=== PATIENT | male | born 1985 | race Caucasian/White ===

== ENCOUNTER 2017-03-14 08:29 | Emergency (ER) | payer SELFPAY ==
[2017-03-14 09:09] VITALS: BP 152/93
--- NOTE | 2017-03-14 09:45 | UC ---
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 started in his shoulder worsened and travels into his arm bicep tenderness and extremely painful to move his arm this morning feels some numbness and tingling in his left hand today can move his arm but limited d/t movement not taking any medication for pain at this time denies chest pain, shorntess of breath , dizziness, diaphoresis,N/V/D - History of Current Complaint Chief Complaint: UCUpperExtremity Stated Complaint: LT ARM INJURY,PAIN/NUMB Time Seen by Provider: 03/14/17 09:38 Hx Obtained From: Patient - Allergies/Home Medications Allergies/Adverse Reactions: Allergies Allergy/AdvReac Type Severity Reaction Status Date / Time No Known Allergies Allergy Verified 05/21/16 12:30 PMH/Surg Hx/FS Hx/Imm Hx Previously Healthy: Yes Endocrine History Of: Denies: Diabetes, Thyroid Disease Cardiovascular History Of: Denies: Cardiac Disorders, Hypertension Respiratory History Of: Denies: COPD, Asthma GI/ History Of: Denies: Ulcer - Surgical History Surgical History: Yes Surgery Procedure, Year, and Place: Pin in right hand - Family History Known Family History: Negative: Cardiac Disease, Hypertension, Diabetes, Seizure Disorder, Blood Disorder - Social History Occupation: Employed Full-time Lives: With Family Alcohol Use: Daily Alcohol Amount: a few beers Substance Use Type: None Smoking Status (MU): Light Every Day Tobacco Smoker Type: Cigarettes Amount Used/How Often: 1 Pack every 2 days Length of Time of Smoking/Using Tobacco: 10 years Have You Smoked in the Last Year: Yes Household Exposure Type: Cigarettes Cessation Counseling: Patient Advised to Stop - Immunization History Most Recent Influenza Vaccination: not received Most Recent Tetanus Shot: may 12, 2016 Most Recent Pneumonia Vaccination: not received Review of Systems Constitutional: Negative Skin: Negative Eyes: Negative ENT: Negative Respiratory: Negative Cardiovascular: Negative Gastrointestinal: Negative Genitourinary: Negative Motor: Negative Neurovascular: Negative Musculoskeletal: Other: - arm and shoulder pain Neurological: Negative Psychological: Negative All Other Systems Reviewed And Are Negative: Yes Physical Exam Triage Information Reviewed: Yes Appearance: Well-Appearing, No Pain Distress, Well-Nourished Vital Signs: Initial Vital Signs Temp 98 F 03/14/17 09:02 Pulse 78 03/14/17 09:02 Resp 16 03/14/17 09:02 BP 152/93 03/14/17 09:02 Pulse Ox 99 03/14/17 09:02 Vital Signs Reviewed: Yes Eyes: Positive: Conjunctiva Clear ENT: Positive: Pharynx normal, TMs normal Neck: Positive: No Lymphadenopathy Respiratory: Positive: Lungs clear, Normal breath sounds, No respiratory distress, No accessory muscle use Cardiovascular: Positive: RRR, No Murmur, Pulses Normal Abdomen Description: Positive: Nontender, No Organomegaly, Soft Bowel Sounds: Positive: Present Musculoskeletal: Positive: Other: - RUE- No bony deformities, tenderness in rotator cuff, biceps tendon, and acromioclavicular joint. Full ROM and strength in shoulder upon adduction, abduction, internal and external rotation. Scapular winging, impingement sign, scratch test (internal rotation), joint laxity, drop arm test were negative. equal strength ion hands pain increases with any movement Neurological: Positive: Alert Psychological Exam: Normal Skin Exam: Normal Upper Extremity Course/Dx - Course Course Of Treatment: exam completed. pain in left shoulder and arm reproducible. no associated symptoms to indicate cardiac involevement. will treat with NSAIDS< flexeril and PT. out of work for 2 days. discusses s/s of when to seek medical assisatnce and he states understanding - Differential Dx/Diagnosis Provider Diagnoses: left shoulder pain. left bicep pain. elevated blood pressure Discharge - Discharge Plan Condition: Stable Disposition: HOME Prescriptions: Cyclobenzaprine TAB* [Flexeril 10 MG TAB*] 10 mg PO BEDTIME #10 tab Naproxen [Naproxen EC 500 MG TAB] 500 mg PO BID #20 tab Patient Education Materials: Tendinitis (ED), Rotator Cuff Tendinitis (ED), Shoulder Sprain (ED) Forms: *Work Release Referrals: No Primary Care Phys,NOPCP [Primary Care Provider] - [facility] [place] [facility] [Outside] Additional Instructions: Start flexeril as directed. Do not drink alcohol or drive while taking flexeril. Please call physical therapy for further evaluation and treatment. Take naproxen for pain. Increase fluids and rest. Please review your discharge instructions. If your symptoms do not improve please call your primary care provider or return to urgent care. Your blood pressure is elevated. Please contact your primary care provider within 1 day -4 weeks for further evaluation.
== END 2017-03-14 10:15 | disposition home or self-care (01) ==
LOC: UCEAST 08:29
DX: M25.512 Pain in left shoulder (principal); M79.622 Pain in left upper arm; F17.210 Nicotine dependence, cigarettes, uncomplicated
CPT/HCPCS: 99212; G0463

== ENCOUNTER 2018-10-04 13:36 | Emergency (ER) | payer SELFPAY ==
[2018-10-04 14:57] VITALS: BP 134/90
--- NOTE | 2018-10-04 15:11 | UC ---
Hand/Wrist HPI - HPI Summary HPI Summary: 33 y/o male presents to the urgent care c/o left thumb swelling and pain for the past month. Pt states pain is dull at the base of her thumb 8/10 w/ certain movement and 2/10 at rest w/o any radiation. He has noticed decrease ROM w/ time. Pt denies any previous injury, numbness or tingling sensation over the thumb or hand , fever, SOB, chest pain, abdominal pain, N/V/D. Pt Took Ibuprofen PO 400mg PO yesterday to alleviate symptoms. - History Of Current Complaint Chief Complaint: UCUpperExtremity Stated Complaint: THUMB INJURY Time Seen by Provider: 10/04/18 15:10 Hx Obtained From: Patient Onset/Duration: Gradual Onset, Lasting Weeks - 4 weeks, Still Present, Worse Since - 2 days w/ swelling Severity Initially: Mild Severity Currently: Moderate Pain Intensity: 5 Pain Scale Used: 0-10 Numeric Character Of Pain: Dull Aggravating Factor(s): Movement, Lifting, Pulling Alleviating Factor(s): Rest, OTC Meds Associated Signs And Symptoms: Positive: Swelling - at the base of left thumb. Negative: Bruising, Fever, Weakness, Numbness/Tingling Related History: Dominant Hand Right - Allergies/Home Medications Allergies/Adverse Reactions: Allergies Allergy/AdvReac Type Severity Reaction Status Date / Time No Known Allergies Allergy Verified 10/04/18 14:51 PMH/Surg Hx/FS Hx/Imm Hx Previously Healthy: Yes - Pt denies PMHX - Surgical History Surgical History: Yes Surgery Procedure, Year, and Place: Pin in right hand - Family History Known Family History: Positive: None - Pt denies FMHX Negative: Cardiac Disease, Hypertension, Diabetes, Seizure Disorder, Blood Disorder - Social History Occupation: Employed Full-time Lives: With Family Alcohol Use: Daily Alcohol Amount: a few beers Substance Use Type: Marijuana Smoking Status (MU): Light Every Day Tobacco Smoker Type: Cigarettes Amount Used/How Often: 6-7 cigs / day Length of Time of Smoking/Using Tobacco: 10 years Have You Smoked in the Last Year: Yes Household Exposure Type: Cigarettes - Immunization History Most Recent Influenza Vaccination: not received Most Recent Tetanus Shot: may 12, 2016 Most Recent Pneumonia Vaccination: not received Review of Systems All Other Systems Reviewed And Are Negative: Yes Constitutional: Positive: Negative Skin: Positive: Other - mild swelling at the base of the left thumb Eyes: Positive: Negative ENT: Positive: Negative Respiratory: Positive: Negative Cardiovascular: Positive: Negative Gastrointestinal: Positive: Negative Genitourinary: Positive: Negative Motor: Positive: Negative Neurovascular: Positive: Negative Musculoskeletal: Positive: Decreased ROM - left thumb, Other: - left thumb pain Neurological: Positive: Negative Psychological: Positive: Negative Is Patient Immunocompromised?: No Physical Exam - Summary Physical Exam Summary: Vital Signs Reviewed: Yes General: Well-Appearing, No Pain Distress, Well-Nourished male w/o any apparent distress Eyes: Positive: Conjunctiva Clear - PERRLA, EOMI ENT: Positive: Normal ENT inspection, Hearing grossly normal, Pharynx normal, TMs normal, Uvula midline Neck: Positive: Supple, Nontender, No Lymphadenopathy Respiratory: Positive: Chest non-tender, Lungs clear, Normal breath sounds, No respiratory distress Cardiovascular: Positive: RRR, No Murmur, Pulses Normal, Brisk Capillary Refill Abdomen Description: Positive: Nontender, No Organomegaly, Soft. Negative: CVA Tenderness (R), CVA Tenderness (L) Bowel Sounds: Positive: Present Musculoskeletal: Positive: Strength Intact, Other: Neurological Exam: Normal Musculoskeletal: Positive: LF hand is without obvious asymmetry or deformity when compared to the R hand. L #1st phalanx with no ecchymosis and positive soft tissue swelling at the base firs MCPJ w/o any obvious deformity. No bony crepitus. Point tenderness over same area. Decreased ROM due to pain. Motor/ sensory function of ulnar, radial, median nerves intact. Ulnar and radial pulses intact. Capillary refill intact. Psychological Exam: Normal Skin Exam: Normal Triage Information Reviewed: Yes Vital Signs: Initial Vital Signs Temp 98.9 F 10/04/18 14:50 Pulse 73 10/04/18 14:50 Resp 18 10/04/18 14:50 BP 134/90 10/04/18 14:50 Pulse Ox 100 10/04/18 14:50 Hand/Wrist Course/Dx - Course Course Of Treatment: 33 y/o male presents to the urgent care c/o left thumb swelling and pain for the past month. Pt states pain is dull at the base of her thumb 8/10 w/ certain movement and 2/10 at rest w/o any radiation. She has noticed decrease ROM w/ time. Pt denies any previous injury, numbness or tingling sensation over the thumb or hand , fever, SOB, chest pain, abdominal pain, N/V/D. Pt Took Ibuprofen PO 400mg PO yesterday to alleviate symptoms. Hx obtained. PE performed. X-ray of the LF thumb ordered: Impression: No sapecific soft tissue swelling, no radiographic evidence of fracture as per radiology. Pt s LF thumb phalanx immobilized with a thumb spica splint by the nurse. Advised RICE: Rest, Ice, elevation, Rx Ibuprofen PO for pain. There was no neurovascular compromise after splint. Pt strongly advised to f/u with Orthopedic Dr Martinez if not improvement of symptoms in 2-3 days. Pt understood and agreed w/ plan of care. - Differential Dx/Diagnosis Differential Diagnosis/HQI/PQRI: Contusion, Fracture, Sprain, Strain, Tendonitis , Tenosynovitis, Other - arthritis Provider Diagnosis: Skier's thumb, Pain of left thumb, Elevated BP without diagnosis of hypertension Discharge - Sign-Out/Discharge Documenting (check all that apply): Patient Departure - d/c home All imaging exams completed and their final reports reviewed: Yes - Discharge Plan Condition: Stable Disposition: HOME Prescriptions: Ibuprofen TAB* [Motrin TAB* 800 MG] 800 mg PO Q6H PRN #30 tab PRN Reason: Pain Patient Education Materials: Skier's Thumb (ED), Low-Sodium Diet (ED) Forms: *Work Release Referrals: [facility] [place] [facility] [Outside] - 3 Days Lalo Martinez MD [Medical Doctor] - 3 Days Additional Instructions: 1-Please take medications as directed after meals to alleviate pain and swelling. 2-Please apply ice, keep your thumb immobilized with the splint. 3- Please f/u with Orthopedic Dr Martinez in 3 days for further evaluation and treatment. 4- Your BP is elevated today. please decrease salt in your diet, monitor BP and if it continues to be elevated please f/u with your PCP for further management - Billing Disposition and Condition Condition: STABLE Disposition: Home
== END 2018-10-04 16:12 | disposition home or self-care (01) ==
LOC: UCEAST 13:36
DX: S63.642A Sprain of metacarpophalangeal joint of left thumb, initial encounter (principal); X58.XXXA Exposure to other specified factors, initial encounter; Y92.9 Unspecified place or not applicable; R03.0 Elevated blood-pressure reading, without diagnosis of hypertension; F17.210 Nicotine dependence, cigarettes, uncomplicated
CPT/HCPCS: 99213; G0463

== ENCOUNTER 2018-10-13 10:22 | Day surgery (SDC) | payer OTHER ==
--- NOTE | 2018-10-12 16:44 | HP ---
PREOPERATIVE HISTORY AND PHYSICAL: DATE OF SURGERY/ADMISSION: 10/13/18 DATE OF OFFICE VISIT/ENCOUNTER: 10/12/18 ATTENDING SURGEON: Janine Pradhan MD * (DICTATED BY JEB BLUM) PROCEDURE: Incision and drainage, removal of foreign body left thumb. CHIEF COMPLAINT: Pain and swelling, left thumb. 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 Over the past month, he has had increased pain and swelling in his left thumb that is not resolving. He thinks may be he got a buckthorn stuck in his thumb about the time of onset of symptoms. He has taken a course of Keflex and also antiinflammatories over the past week; however, these have not improved his symptoms. He believes that the pain and swelling are getting worse. He denies any associated numbness or tingling. He denies having any fevers. It has been recommended by Dr. Pradhan that he undergo an incision and drainage of the left thumb and the patient has consented to proceed. PAST MEDICAL HISTORY: Unremarkable. PAST SURGICAL HISTORY: Right hand surgery after a metacarpal fracture. MEDICATIONS: Ibuprofen p.r.n. ALLERGIES: No known drug allergies. FAMILY MEDICAL HISTORY: Stroke. SOCIAL HISTORY: The patient is employed as an data virtualization consultant. He is a current smoker half a pack per day for the past 10 years. He also smokes marijuana with some irregularity. He drinks alcohol on occasion. REVIEW OF SYSTEMS: Negative for general, cephalic, cardiovascular, respiratory , GI, , other musculoskeletal, integumentary, endocrine, neurologic, and hematologic symptoms. Infectious Disease is negative for history of MRSA, hepatitis C, HIV. PHYSICAL EXAMINATION GENERAL: Well-developed, well-nourished 33-year-old male, in no acute distress. VITAL SIGNS: Height 6 feet 3 inches, weight 185 pounds. Pulse rate 82, blood pressure 140/90. HEENT: Normocephalic, atraumatic. Pupils are equal, round, and reactive to light and accommodation. Throat is clear. NECK: Supple. No palpable lymph nodes. PULMONARY: Lungs are clear to auscultation bilaterally. No wheezes, rales, or rhonchi. CARDIOVASCULAR: Regular rate and rhythm. S1, S2. No murmurs, rubs, or gallops. No edema. ABDOMEN: Positive bowel sounds. Soft, nontender. MUSCULOSKELETAL: On exam of his left thumb, he has significant swelling from the MP joint distally. There is no erythema. He has exquisite tenderness over the flexor tendon sheath between MP and IP and increased pain with flexion, also increased pain with passive extension. There is a small black dot area on the volar aspect of his thumb that could represent an entrance wound of the buckthorn. There is no drainage. NEUROLOGICAL: Alert and oriented x3. Cranial nerves II through XII are intact. Sensation is intact to light touch. SKIN: Intact. ASSESSMENT: Left thumb possible foreign body/infection. PLAN: The patient is scheduled to undergo an incision and drainage, removal of foreign body left thumb with Dr. Pradhan on 10/13/18. He will return to the office 10 days postop for followup and suture removal. He will use over-the- counter ibuprofen and/or Tylenol for postoperative pain management. JEB BLUM [id number]/[facility] #: [id number] [place]
[~2018-10-13 10:22] MED LIST: Buffered Lidocaine 0.9% SYRIN* 5 ML/SYR SYRINGE INTRADERM ONE; Famotidine IV* 10 MG/ML 2 ML (20 mg) IV ONE; Famotidine IV* 10 MG/ML 2 ML (20 mg) ONE; Lactated Ringers 1000 ML Bag* 1,000 ML IV SCH; Lidocaine 1% INJ* 10 MG/ML 30 ML SDV ONE; ceFAZolin 2 GM PREMIX in ORs 2 GM/50 ML BAG IVPB ONE
[2018-10-13] MEDS ORDERED: Midazolam* 1 MG/ML 5 ML VIAL (5 MG) ONE (11:14)
[2018-10-13] MEDS ORDERED: fentaNYL* 50 MCG/ML 2 ML VIAL (100 MCG VIAL) ONE (11:14)
[2018-10-13] MEDS ORDERED: Acetaminophen TAB* 325 MG PO PRN (11:44)
[2018-10-13] MEDS ORDERED: Naloxone* 0.4 MG/ML 1 ML VIAL IV PRN (11:44)
[2018-10-13] MEDS ORDERED: DiMENhydriNATE IV* 50 MG/ML VIAL IV PUSH PRN (11:44)
[2018-10-13] MEDS ORDERED: oxyCODONE TAB* 5 MG TAB PO PRN (11:44)
[2018-10-13] MEDS ORDERED: Midazolam* 1 MG/ML 2 ML VIAL (2 MG) ONE (12:11)
[2018-10-13] MEDS ORDERED: Lidocaine 2% PF * 5 ML VIAL ONE (12:15)
[2018-10-13] MEDS ORDERED: Propofol* 10 MG/ML 20 ML BTL ONE ×2 (12:15)
[2018-10-13] MEDS ORDERED: Ondansetron INJ* 2 MG/ML VIAL ONE (12:15)
[2018-10-13] MEDS ORDERED: Ketorolac INJ* 30 MG/ML 1 ML VIAL ONE (12:15)
[2018-10-13 12:34] VITALS: BP 117/88
--- NOTE | 2018-10-13 20:45 | OP ---
DATE OF OPERATION: 10/13/18 [facility] DATE OF : 85 SURGEON: Janine Pradhan MD MANAGER CANCER: JEB Brandon ANESTHESIA: Local MAC. PRE-OP DIAGNOSIS: Left thumb infection and possible foreign body. POST-OP DIAGNOSIS: Left thumb infection, possible tenosynovitis. No foreign body was found. OPERATIVE PROCEDURE: I and D of left thumb with exploration. ESTIMATED BLOOD LOSS: Zero. TOURNIQUET TIME: About 15 minutes. 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 He has had a swelling in his left thumb for a few weeks. He does not recall a specific puncture wound, but thinks he might have had a puncture wound in the thumb. He complains of pain at the IP flexion crease. This did not improve with a course of oral antibiotic. He presents for I and D and exploration and possible foreign body removal. DESCRIPTION OF PROCEDURE: The patient was brought to the operating room and was given sedation anesthetic and a local infiltration of 10 cc of 1% plain lidocaine as a digital block to the left thumb. The skin of his left upper extremity was prepped and draped in the usual sterile fashion. The hand and forearm were exsanguinated and the tourniquet elevated to 250 mmHg. A diagonal incision was made across the IP flexion crease of the thumb and the wound was explored. No foreign body was found. Cultures were obtained including fungal cultures. The flexor tendon was in good condition. The wound was copiously irrigated with a liter and a half of saline and then loosely closed with 4-0 nylon suture. The wound was dressed with Xeroform, 4x4, Webril and Coban. The patient tolerated the procedure well and was brought to the recovery room in good condition. [id number]/[facility] #: [id number] [facility]
== END 2018-10-13 12:56 | disposition home or self-care (01) ==
LOC: OREAST 10:22
PROVIDERS: ATTEND Orthopaedic Surgery
DX: S61.032A Puncture wound without foreign body of left thumb without damage to nail, initial encounter (principal); L03.012 Cellulitis of left finger; M65.842 Other synovitis and tenosynovitis, left hand; F17.210 Nicotine dependence, cigarettes, uncomplicated; W60.XXXA Contact with nonvenomous plant thorns and spines and sharp leaves, initial encounter; X58.XXXA Exposure to other specified factors, initial encounter; Y92.9 Unspecified place or not applicable; Y99.0 Civilian activity done for income or pay
CPT/HCPCS: 87070; 87073; 87077; 87102; 87116; 87205; 87206; J0690; J1885; J2250; J2405; J2704; J3010

== ENCOUNTER 2018-12-11 13:10 | Day surgery (SDC) | payer OTHER ==
[~2018-12-11 13:10] MED LIST changes: -Buffered Lidocaine 0.9% SYRIN* 5 ML/SYR SYRINGE INTRADERM ONE; +Buffered Lidocaine 1% SYRIN* 1 ML/SYRINGE INTRADERM ONE; -Famotidine IV* 10 MG/ML 2 ML (20 mg) ONE; -Lidocaine 1% INJ* 10 MG/ML 30 ML SDV ONE; -ceFAZolin 2 GM PREMIX in ORs 2 GM/50 ML BAG IVPB ONE
[2018-12-11] MEDS ORDERED: ceFAZolin 2 GM PREMIX in ORs 2 GM/50 ML BAG IVPB ONE (13:35)
[2018-12-11] MEDS ORDERED: Famotidine IV* 10 MG/ML 2 ML (20 mg) ONE (13:36)
[2018-12-11] MEDS ORDERED: Midazolam* 1 MG/ML 5 ML VIAL (5 MG) ONE (14:38)
[2018-12-11] MEDS ORDERED: Lidocaine 2% PF * 5 ML VIAL ONE (14:38)
[2018-12-11] MEDS ORDERED: fentaNYL* 50 MCG/ML 2 ML VIAL (100 MCG VIAL) ONE (14:38)
[2018-12-11] MEDS ORDERED: Ondansetron INJ* 2 MG/ML VIAL ONE (14:38)
[2018-12-11] MEDS ORDERED: Ketorolac INJ* 30 MG/ML 1 ML VIAL ONE (14:38)
[2018-12-11] MEDS ORDERED: Propofol* 10 MG/ML 20 ML BTL ONE (14:38)
[2018-12-11] MEDS ORDERED: Bupivacaine 0.5%* 50 ML VIAL ONE (15:24)
[2018-12-11] MEDS ORDERED: oxyCODONE TAB* 5 MG TAB PO PRN (15:25)
[2018-12-11] MEDS ORDERED: Acetaminophen TAB* 325 MG PO PRN (15:25)
[2018-12-11] MEDS ORDERED: DiMENhydriNATE IV* 50 MG/ML VIAL IV PUSH PRN (15:25)
[2018-12-11 17:12] VITALS: BP 138/92
--- NOTE | 2018-12-11 23:55 | OP ---
DATE OF OPERATION: 12/11/18 - [facility] DATE OF : 85 SURGEON: Lalo Martinez MD ORDER RUNNER: JEB Brandon. An sales office assistant was needed for the entirety of the case to aid in positioning of the hand as this was on the thumb. ANESTHESIOLOGIST: Dr. Don. ANESTHESIA: General. PRE-OP DIAGNOSES: 1. Left thumb periarticular interphalangeal joint soft tissue mass with a large amount of associated soft tissue swelling and edema. 2. Left thumb interphalangeal joint effusion. POST-OP DIAGNOSES: 1. Left thumb periarticular interphalangeal joint soft tissue mass with a large amount of associated soft tissue swelling and edema. 2. Left thumb interphalangeal joint effusion. OPERATIVE PROCEDURE: 1. Left thumb excision of deep periarticular interphalangeal joint soft tissue mass. 2. Arthrotomy with cultures with irrigation and debridement of left thumb interphalangeal joint. INDICATIONS: Nolan had an attempted excise of what he told me was a superficial thorn. Nothing was really found; the thumb has been swollen for quite some time; it is centered around the IP joint. He is very tender over the palmar radial aspect of that joint where he had what looked like circumscribed soft tissue mass, largely fluid filled with potentially some solid component as well near the joint. I had talked to him about his options. We had talked about excising the mass and irrigating out the joint. He understands the risk of neurovascular injury to the thumb, of loss of sensation on the thumb tip, of stiffness and he would like to proceed. ESTIMATED BLOOD LOSS: 2 mL. COMPLICATIONS: None. FINDINGS: There was a brownish looking soft tissue mass in the area of concern on the MRI. DESCRIPTION OF PROCEDURE: Nolan was seen in the preoperative holding area. The correct side, site, and procedure were identified. We came back to the operating room where the arm was prepped and draped in the usual fashion and a time-out was performed. The arm was exsanguinated with the Esmarch and the tourniquet was inflated to 250 mmHg. I went ahead and used his prior oblique incision and anted this back transversely across the IP joint and then brought this out distally onto the thumb tip. I very carefully took the dissection down to the tendon sheath as there was some quite a bit of scar tissue that had formed and I wanted to preserve the digital nerve. The radial digital nerve was identified as was the digital artery and these were protected throughout the case. The volar plate was identified and I came just under their proximal radial aspect right where I had seen the soft tissue mass on the MRI. I incised this longitudinally with a [place] blade and immediately a brownish soft tissue mass protruded from the area. I excised this. As I was excising it, I opened the joint. There was abundant synovial fluid that came out. I went ahead and sent this for aerobic, anaerobic, fungal, and microbacterial cultures. We attempted to get some fluid for crystal analysis, but that required separate fluid and not just a swab and there just was not enough to send for the specimen. I did take out a 22 gauge angiocatheter and irrigate out the joint with 50 mL of saline. What synovium I could see was debrided with a rongeur. Care was taken not to injure the articular surface. Once I had everything looking as good as possible, I went ahead and closed the longitudinal split in the proximal volar plate with a 4-0 PDS suture. The skin was then closed with 4-0 nylon suture. Soft dressings were applied. I had performed a digital block with 0.5% Marcaine at the beginning of the case. Tourniquet was deflated. The thumb pinked up immediately. He was taken to the recovery room in stable condition. [id number]/[facility] #: [id number] [facility]
== END 2018-12-11 17:31 | disposition home or self-care (01) ==
LOC: OR 13:10
PROVIDERS: ATTEND Orthopaedic Surgery Hand Surgery
DX: M67.442 Ganglion, left hand (principal); M25.442 Effusion, left hand; Z72.0 Tobacco use
CPT/HCPCS: 76000; 87070; 87073; 87102; 87116; 87205; 87206; 88304; J0690; J1885; J2250; J2405; J2704; J3010

== ENCOUNTER 2019-06-23 09:44 | Emergency (ER) | payer SELFPAY ==
[2019-06-23 09:50] VITALS: BP 131/86
--- NOTE | 2019-06-23 09:56 | UC ---
Skin Complaint HPI - HPI Summary HPI Summary: 33 y/o male presents to the urgent care c/o a piece of ivey branch in his posterior scalp s/p throwing the branch yesterday at his house. Pt reports his tried to removed the piece of wood w/ forceps w/o any success. Pain at touch is 4/10 at touch, non bleeding. Pt is UTD w/ Tdap given on 2017. Pt has not taken anything for pain. Pt denies fever, TEIXEIRA, visual changes, dizziness, SOB, chest pain,abdominal pain, N/V/D. - History of Current Complaint Chief Complaint: UCForeignBody Time Seen by Provider: 06/23/19 09:55 Stated Complaint: SCALP COMPLAINT Hx Obtained From: Patient Onset/Duration: Sudden Onset, Lasting Days - 1 day, Still Present, Worse Since - this morning Skin Exposure Onset/Duration: Days Ago - 1 day, Worse Since: - this morning Timing: Constant Onset Severity: Mild Current Severity: Mild Pain Intensity: 4 Pain Scale Used: 0-10 Numeric Location: Discrete - posterior scalp w/ piece of wood Character: Swelling, Pain, Redness Aggravating Factor(s): Touch Alleviating Factor(s): Heat Associated Signs & Symptoms: Positive: Rash - piece of wood in the posterior scalp, Tenderness. Negative: Nausea, Vomiting, Numbness, Fever, Chills, Drainage Related History: Other: - piece of wood in the posterior scalp - Allergy/Home Medications Allergies/Adverse Reactions: Allergies Allergy/AdvReac Type Severity Reaction Status Date / Time kiwi Allergy itchy Verified 06/23/19 09:50 tongue PMH/Surg Hx/FS Hx/Imm Hx Previously Healthy: Yes - Pt denies PMHX - Surgical History Surgical History: Yes Surgery Procedure, Year, and Place: Pin in right hand - NOW REMOVED PIN. 2017-LEFT THUMB SURGERY- [facility], S - Family History Known Family History: Positive: None - Pt denies FMHX Negative: Cardiac Disease, Hypertension, Diabetes, Seizure Disorder, Blood Disorder - Social History Occupation: Employed Full-time Lives: With Family Alcohol Use: Daily Alcohol Amount: 2-4 BEERS PER NIGHT Substance Use Type: None Smoking Status (MU): Light Every Day Tobacco Smoker Type: Cigarettes Amount Used/How Often: 3 CIGARETTES PER DAY X 10 YEARS Length of Time of Smoking/Using Tobacco: 10 years Have You Smoked in the Last Year: Yes Household Exposure Type: Cigarettes - Immunization History Most Recent Influenza Vaccination: not received Most Recent Tetanus Shot: may 12, 2016 Most Recent Pneumonia Vaccination: not received Review of Systems All Other Systems Reviewed And Are Negative: Yes Constitutional: Positive: Negative Skin: Positive: Other - piece of wood in the posterior scalp w/ tenderness and swelling Eyes: Positive: Negative ENT: Positive: Negative Respiratory: Positive: Negative Cardiovascular: Positive: Negative Gastrointestinal: Positive: Negative Genitourinary: Positive: Negative Motor: Positive: Negative Neurovascular: Positive: Negative Musculoskeletal: Positive: Negative Neurological: Positive: Negative Psychological: Positive: Negative Is Patient Immunocompromised?: No Physical Exam - Summary Physical Exam Summary: Vital Signs Reviewed: Yes General: well developed, well nourished male sitting in the examining table w/o any apparent distress Eye Exam: Normal Eyes: Positive: Conjunctiva Clear - PERRLA, EOMI, fundi grossly normal ENT: Positive: Normal ENT inspection, Hearing grossly normal, Pharynx normal, TMs normal Neck: Positive: Supple, Nontender, No Lymphadenopathy Respiratory: Positive: Chest non-tender, Lungs clear, Normal breath sounds, No respiratory distress Cardiovascular: Positive: RRR, No Murmur, Pulses Normal, Brisk Capillary Refill Abdomen Description: Positive: Nontender, No Organomegaly, Soft. Negative: CVA Tenderness (R), CVA Tenderness (L) Bowel Sounds: Positive: Present Musculoskeletal: Positive: Strength Intact, ROM Intact, No Edema Neurological: Positive: Alert, Muscle Tone Normal Psychological Exam: Normal Skin: Positive:posterior top of scalp w/ a small piece of wood w/ mild swelling and tender to palpation, non bleeding, FROM of head. sensation intact, capillary refill brisk, and pulses WNL. Triage Information Reviewed: Yes Vital Signs: Initial Vital Signs Temp 98 F 06/23/19 09:46 Pulse 72 06/23/19 09:46 Resp 16 06/23/19 09:46 BP 131/86 06/23/19 09:46 Pulse Ox 99 06/23/19 09:46 Course/Dx - Course Course Of Treatment: 33 y/o male presents to the urgent care c/o a piece of ivey branch in his posterior scalp s/p throwing the branch yesterday at his house. Pt reports his tried to removed the piece of wood w/ forceps w/o any success. Pain at touch is 4/10 at touch, non bleeding. Pt is UTD w/ Tdap given on 2017. Pt has not taken anything for pain. Pt denies fever, TEIXEIRA, visual changes, dizziness, SOB, chest pain,abdominal pain, N/V/D. Hx obtained. Pt w/ posterior top of scalp w/ a small piece of wood w/ mild swelling and tender to palpation, non bleeding, FROM of head on examination. FOREIGN BODY REMOVAL PROCEDURE: Copious irrigation was done with saline and the wound explored. Timeout performed with the nurse. The procedure was explained and consent obtained. 1ml of lidocaine 1 % applied to anesthetize the area. Wound cleaned w/ Iodine swabs. Small piece brown wood about 1 cm in size removed w/ a 18G needle and forceps. Bacitracin oint applied Wound dressed w/ sterile gauze.The Pt tolerated the procedure well without adverse effects. Neurovascular intact and FROM of head. Pt Rx kelfelx PO and Bacitrain oint as directed below to prevent infection. Advised to take ibuprofen or Tylenol to alleviate pain and swelling. Pt advised if any signs of infection develop or severe TEIXEIRA, despite taking antibiotics to go immediately to ER for further management and treatment. Pt understood and agreed and left the clinic ambulating A&Ox3. - Differential Diagnoses - Skin Complaint Differential Diagnoses: Abscess, Cellulitis, Contact Dermatitis, MRSA, Other - FB in the scalp, laceration,abrasion - Diagnoses Provider Diagnosis: Splinter of scalp without major open wound Discharge ED - Sign-Out/Discharge Documenting (check all that apply): Patient Departure - d/C home All imaging exams completed and their final reports reviewed: No Studies - Discharge Plan Condition: Stable Disposition: HOME Prescriptions: Bacitracin OINTMENT* 1 applic TOPICAL BID #1 tube Cephalexin CAP* [Keflex CAP*] 500 mg PO QID #28 cap Patient Education Materials: Soft Tissue Foreign Body (ED) Referrals: Eliu Barnes MD [Primary Care Provider] - 3 Days Additional Instructions: 1-Please take full course of antibiotic to avoid resistance. 2- Keep wound clean and dry and apply Bacitracin oint as directed 3-Take Ibuprofen or Tylenol PO q6-8hrs prn for pain or swelling. 4- If you develop fever or redness around your scalp wound despite the antibiotic please go to the ER immediately or return to the Urgent care. - Billing Disposition and Condition Condition: STABLE Disposition: Home
[2019-06-23] MEDS ORDERED: Lidocaine 1% MPF ** 5 ML VIAL IM ONE (10:07)
== END 2019-06-23 11:24 | disposition home or self-care (01) ==
LOC: UCEAST 09:44
DX: S00.05XA Superficial foreign body of scalp, initial encounter (principal); W45.8XXA Other foreign body or object entering through skin, initial encounter; Y92.9 Unspecified place or not applicable; F17.210 Nicotine dependence, cigarettes, uncomplicated
CPT/HCPCS: 99212; G0463

== ENCOUNTER 2019-11-15 12:08 | Day surgery (SDC) | payer OTHER ==
[~2019-11-15 12:08] MED LIST changes: +Acetaminophen TAB* 325 MG PO PRN; +Dexamethasone TAB* 4 MG ONE; +Dexamethasone TAB* 4 MG PO ONE; +DiMENhydriNATE IV* 50 MG/ML VIAL IV PUSH PRN; +Famotidine IV* 10 MG/ML 2 ML (20 mg) ONE; +HYDROmorphone INJ1* 1 MG/ML SYRINGE IV PRN; +Naloxone* 0.4 MG/ML 1 ML VIAL IV PRN; +Ondansetron ODT TAB* 4 MG ONE; +Ondansetron ODT TAB* 4 MG PO ONE; +PROCHLORPERAZINE INJ 5 MG/ML 2 ML VIAL IV PRN; +ceFAZolin 2 GM PREMIX in ORs 2 GM/50 ML BAG ONE; +fentaNYL* 50 MCG/ML 2 ML VIAL (100 MCG VIAL) IV PRN; +oxyCODONE TAB* 5 MG TAB PO PRN
[2019-11-15] MEDS ORDERED: KETAMINE HCL* 50 MG/ML 10 ML VIAL ONE (12:23)
[2019-11-15] MEDS ORDERED: fentaNYL* 50 MCG/ML 2 ML VIAL (100 MCG VIAL) ONE (12:23)
[2019-11-15] MEDS ORDERED: Midazolam* 1 MG/ML 5 ML VIAL (5 MG) ONE (12:23)
[2019-11-15] MEDS ORDERED: Scopolamine 1.5 mg* PATCH ONE (12:52)
[2019-11-15] MEDS ORDERED: Bupivacaine 0.25% SDV* 30 ML ONE (13:07)
[2019-11-15] MEDS ORDERED: Ketorolac INJ* 30 MG/ML 1 ML VIAL ONE (15:08)
[2019-11-15] MEDS ORDERED: Lidocaine 2% PF * 5 ML VIAL ONE (15:08)
[2019-11-15] MEDS ORDERED: Propofol* 10 MG/ML 20 ML BTL ONE (15:08)
[2019-11-15] MEDS ORDERED: Phenylephrine 40 MCG/ML SYRINGE ONE (15:56)
[2019-11-15 17:00] VITALS: BP 144/93
--- NOTE | 2019-11-16 02:22 | OP ---
DATE OF OPERATION: 11/15/19 - [facility] DATE OF : 85 SURGEON: Lalo Martinez MD SOUND RANGING CREWMEMBER: JEB Kessler ANESTHESIOLOGIST: Dr. Estrada. ANESTHESIA: General. 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 OPERATIVE PROCEDURE: Left thumb interphalangeal joint full complete synovectomy. INDICATIONS: Mr. Phan has the condition and thought he might have had a thorn in the joint, was initially sore and so Dr. Pradhan attempted to remove the thorn, but nothing obvious was excised. I then, a short time later, made a volar approach to the joint, so thought he had a little white spot on the volar aspect of the joint that may have been something along the lines of glomus tumor or something along those lines. I did go ahead and make an arthrotomy from that approach and I irrigated out the joint. I sent cultures, nothing ever grew. I then did not see Nolan for a few months and he came back. Now, it has been about a year out from all of this beginning and he has a very large swollen and painful interphalangeal joint. He is wondering what else could be done. He does have a lot of concern that he may have a retained foreign material in the joint, which is a thorn. I told them we would do a synovectomy , get cultures, and send the specimen off for pathology as well as examine the joint for any foreign material and see if we can get a better diagnosis. He does wish to proceed. He understands the chance of recurrence and ultimately if this continues, he may end up needing an interphalangeal joint fusion. ESTIMATED BLOOD LOSS: 2 mL. COMPLICATIONS: None. FINDINGS: See above and below. No foreign material was identified. DESCRIPTION OF PROCEDURE: Mr. Phan was seen in the preoperative holding area. The correct site, side, and procedure were identified. We came back to the operating room, the arm was prepped and draped in the usual fashion, and time-out was performed. The arm was exsanguinated and the tourniquet was inflated. I made an H-shaped incision over the dorsum of the thumb. Full-thickness flaps were raised off the extensor tendon. There was abundant synovitis protruding from either side of the extensor tendon. I went ahead and performed a complete synovectomy dorsally. The collateral ligaments were preserved both radially and ulnarly. I was able to place a [place] elevator into the joint and book open the joint enough to be able to see the volar aspect of the joint. No foreign material was identified. I used a curette to scrape out as much volarly as I could, cleaned up the radial and ulnar gutters. I sent some of the synovitis off for pathology, some for aerobic culture, some for anaerobic, some for fungal and some for mycobacterial cultures. At this point, everything was looking good. I irrigated out the wound. Skin was closed with 4-0 nylon suture. The wound was dressed and an Alumafoam splint was placed. He was taken to the recovery room in stable condition. [id number]/CPS #: [id number]
[2019-11-18] MEDS ORDERED: Scopolamine PATCH Remove* 1 NOTE MISC PATCH OFF ONE (06:00)
== END 2019-11-15 16:55 | disposition home or self-care (01) ==
LOC: OREAST 12:08
PROVIDERS: ATTEND Orthopaedic Surgery Hand Surgery
DX: M65.842 Other synovitis and tenosynovitis, left hand (principal); F17.210 Nicotine dependence, cigarettes, uncomplicated
CPT/HCPCS: 87070; 87073; 87102; 87116; 87205; 87206; 88304; A9270-GY; J0690; J1885; J2250; J2704; J3010; J3490; J8540